=== PATIENT | male | born 1965 | race African-American/Black ===

== ENCOUNTER 2019-09-21 19:59 | Emergency (ER) | payer SELFPAY, OTHER ==
[2019-09-21] MEDS ORDERED: Acetaminophen 500 MG TAB ONE (20:14)
--- NOTE | 2019-09-21 23:14 | RAD ---
XR Chest 1 View Portable HISTORY: Cough fever and chills. COMPARISON: 01/22/2017 study. FINDINGS: Heart size and mediastinum are within normal limits. The lungs are clear of infiltrates. No bony findings. IMPRESSION: No active intrathoracic disease.
[2019-09-21 23:15] LABS: Bilirubin Negative (Negative); Blood, Urine 2+ (Negative); Clarity Turbid (Clear); Glucose, Urine (Dipstick) Normal (Negative); Leukocyte 500 Leu/uL (Negative); Nitrite Negative (Negative); Protein, Urine (Dipstick) Negative (Neg-Trace); Squamous Epithelial 0-3 HPF (0-3); Urobilinogen Normal mg/dL (Less than 2); WBC/HPF Greater than 50 HPF (0-3)
[2019-09-21 23:17] LABS: Bacteria/HPF 1+ HPF (None Seen)
== END 2019-09-22 00:07 | disposition home or self-care (01) ==
LOC: ERS 19:59
DX: N39.0 Urinary tract infection, site not specified (principal); I10 Essential (primary) hypertension; D64.9 Anemia, unspecified; F41.9 Anxiety disorder, unspecified; F32.9 Major depressive disorder, single episode, unspecified; Z79.899 Other long term (current) drug therapy
CPT/HCPCS: 71045; 81003; 81015; 87804

== ENCOUNTER 2020-03-26 22:57 | Emergency (ER) | payer OTHER, SELFPAY ==
[2020-03-26] MEDS ORDERED: Orphenadrine Citrate 60 MG/2 ML VIAL IM SCH (23:30)
[2020-03-26] MEDS ORDERED: Ketorolac Tromethamine 30 MG/ML VIAL ONE (23:42)
== END 2020-03-27 00:27 | disposition home or self-care (01) ==
LOC: ERS 22:57
DX: M62.830 Muscle spasm of back (principal); I10 Essential (primary) hypertension; F41.9 Anxiety disorder, unspecified
CPT/HCPCS: 96372; J1885; J2360